=== PATIENT | male | born 1960 | race Caucasian/White ===

== ENCOUNTER 2018-02-04 16:20 | Emergency (ER) | payer BC ==
--- NOTE | 2018-02-04 17:12 | EDM.PDOC ---
ED HPI GENERAL MEDICAL PROBLEM - General Chief Complaint: Chest Pain Stated Complaint: CHEST PAIN Time Seen by Provider: 02/04/18 16:27 Source of Information: Reports: Patient History Limitations: Reports: No Limitations - History of Present Illness INITIAL COMMENTS - FREE TEXT/NARRATIVE: 57 y/o M previously healthy with L sided CP x 2 weeks. No provoking factor. Doesn't recall details of onset. Pain is located in left front chest area. It is a dull tightness and heaviness. Constant. When distracted he doesn't notice it. Rates it as mild. No clear provoking or relieving factors. Not related to eating or movement. Tried antacid medications but no relief. No lower extremity pain or swelling. No cough or recent illness. No fever. No vomiting or abdominal pain. Denies history of similar symptoms previously. No recent travel or immobilization. No personal or family hx of DVT/PE. Brother has coronary stents, diagnosed with CAD in his mid 60's. Left Chest Pain Score (Numeric/FACES): 3 - Related Data Allergies Allergy/AdvReac Type Severity Reaction Status Date / Time No Known Allergies Allergy Verified 02/04/18 16:33 Home Meds: Home Meds Aspirin [Vladimir Chewable Aspirin] 162 mg PO DAILY 02/04/18 [History] Past Medical History HEENT History: Reports: Impaired Vision Social & Family History - Tobacco Use Smoking Status *Q: Never Smoker - Caffeine Use Caffeine Use: Reports: None - Recreational Drug Use Recreational Drug Use: No ED ROS GENERAL - Review of Systems Review Of Systems: See Below Constitutional: Denies: Fever HEENT: Reports: No Symptoms Respiratory: Denies: Shortness of Breath Cardiovascular: Reports: Chest Pain Endocrine: Reports: No Symptoms GI/Abdominal: Denies: Abdominal Pain, Nausea Musculoskeletal: Reports: No Symptoms Skin: Reports: No Symptoms Neurological: Reports: No Symptoms Psychiatric: Reports: No Symptoms ED EXAM, GENERAL - Physical Exam Exam: See Below Exam Limited By: No Limitations General Appearance: Alert, WD/WN, No Apparent Distress Eye Exam: Bilateral Eye: Normal Inspection Ears: Normal External Exam Nose: Normal Inspection Throat/Mouth: Normal Inspection, Normal Oropharynx, Normal Voice Head: Atraumatic, Normocephalic Neck: Normal Inspection, Supple, Non-Tender, Full Range of Motion Respiratory/Chest: No Respiratory Distress, Lungs Clear, Normal Breath Sounds, No Accessory Muscle Use, Chest Non-Tender Cardiovascular: Normal Peripheral Pulses, Regular Rate, Rhythm, No Edema, No Gallop, No Murmur, No Rub Peripheral Pulses: 2+: Radial (R) GI/Abdominal: Soft, Non-Tender, No Distention. No: Rebound Back Exam: Normal Inspection Extremities: Normal Inspection, No Pedal Edema Neurological: Alert, Oriented, Normal Cognition, No Motor/Sensory Deficits Psychiatric: Normal Affect, Normal Mood Skin Exam: Warm, Dry, Intact, Normal Color, No Rash Course - Vital Signs Last Recorded V/S: Last Vital Signs Temp 36.2 C 02/04/18 16:25 Pulse 103 H 02/04/18 16:25 Resp 16 02/04/18 16:25 BP 167/99 H 02/04/18 16:25 Pulse Ox 96 02/04/18 16:25 - Orders/Labs/Meds Orders: Active Orders 24 hr Category Date Time Status EKG Documentation Completion [RC] ASDIRECTED Care 02/04/18 16:33 Active Chest 1V Frontal [CR] Stat Exams 02/04/18 16:40 Taken EKG 12 Lead [EK] Stat Ther 02/04/18 16:33 Ordered Labs: Laboratory Tests 02/04/18 02/04/18 02/04/18 Range/Units 16:35 16:35 16:35 WBC 7.13 (4.23-9.07) K/mm3 RBC 5.45 (4.63-6.08) M/mm3 Hgb 16.1 (13.7-17.5) gm/L Hct 46.8 (40.1-51.0) % MCV 85.9 (79.0-92.2) fl MCH 29.5 (25.7-32.2) pg MCHC 34.4 (32.2-35.5) g/dl RDW Std Deviation 40.9 (35.1-43.9) fL Plt Count 288 (163-337) K/mm3 MPV 9.2 L (9.4-12.3) fl Neut % (Auto) 50.8 (34.0-67.9) % Lymph % (Auto) 37.0 (21.8-53.1) % [place] % (Auto) 9.4 (5.3-12.2) % Eos % (Auto) 2.4 (0.8-7.0) Baso % (Auto) 0.3 (0.1-1.2) % Neut # (Auto) 3.62 (1.78-5.38) K/mm3 Lymph # (Auto) 2.64 (1.32-3.57) K/mm3 [place] # (Auto) 0.67 (0.30-0.82) K/mm3 Eos # (Auto) 0.17 (0.04-0.54) K/mm3 Baso # (Auto) 0.02 (0.01-0.08) K/mm3 D-Dimer, Quantitative 0.26 (0.19-0.59) mg/L Sodium 140 (136-145) mEq/L Potassium 3.8 (3.5-5.1) mEq/L Chloride 102 (98-107) mEq/L Carbon Dioxide 28 (21-32) mEq/L Anion Gap 13.8 (5-15) BUN 22 H (7-18) mg/dL Creatinine 1.3 (0.7-1.3) mg/dL Est Cr Clr Drug Dosing 61.18 mL/min Estimated GFR (MDRD) 57 (>60) mL/min BUN/Creatinine Ratio 16.9 (14-18) Glucose 129 H (74-106) mg/dL Calcium 9.0 (8.5-10.1) mg/dL Total Bilirubin 1.3 H (0.2-1.0) mg/dL AST TNP ALT 100 H (16-63) U/L Alkaline Phosphatase 69 (46-116) U/L Troponin I < 0.017 (0.00-0.056) ng/mL Total Protein 7.3 (6.4-8.2) g/dl Albumin 3.8 (3.4-5.0) g/dl Globulin 3.5 gm/dL Albumin/Globulin Ratio 1.1 (1-2) - Re-Assessments/Exams Free Text/Narrative Re-Assessment/Exam: 02/04/18 18:41 EKG shows NSR, no evidence of acute ischemia or arrhythmia. CXR shows normal cardiac silhouette, no ptx, normal study. Labs including troponin and d-dimer neg. Will not repeat as he's had constant subacute symptoms x 2 weeks. No definite explanation for pain but given well appearing, normal vitals, normal EKG and labs, and only risk factor is family history, will discharge with plan for him to f/u with PCP art to discuss possible further testing. Discussed return precautions. Departure - Departure Time of Disposition: 17:42 Disposition: Home, Self-Care 01 Clinical Impression: Chest pain at rest Instructions: Nonspecific Chest Pain, [id number] Referrals: Dani Torres MD [Primary Care Provider] - Forms: ED Department Discharge Additional Instructions: 1. OK to take acetaminophen (tylenol) and/or ibuprofen as needed for pain 2. Follow up with your primary care provider this week to discuss further testing 3. Return to the ED if you have worsening chest pain, shortness of breath, or any other concerning symptoms - My Orders Last 24 Hours: My Active Orders 02/04/18 16:33 EKG Documentation Completion [RC] ASDIRECTED EKG 12 Lead [EK] Stat 02/04/18 16:40 Chest 1V Frontal [CR] Stat - Assessment/Plan Last 24 Hours: My Active Orders 02/04/18 16:33 EKG Documentation Completion [RC] ASDIRECTED EKG 12 Lead [EK] Stat 02/04/18 16:40 Chest 1V Frontal [CR] Stat
--- NOTE | 2018-02-05 09:12 | CR ---
Chest: Portable view of the chest was obtained. Comparison: No prior chest x-ray. Heart size and mediastinum are normal. Nodule identified within the upper right lung. Lungs otherwise are clear. Bony structures are grossly intact. Impression: 1. Nodule within the right upper lung. Uncertain if this represents a very prominent bony exostosis off the costochondral junction or represents actual pulmonary nodule. Noncontrast chest CT recommended to further evaluate. 2. Nothing acute is otherwise seen on portable chest x-ray. Diagnostic code #9
== END 2018-02-04 17:53 | disposition home or self-care (01) ==
LOC: JD.ED 16:20
DX: R07.89 Other chest pain (principal); Z79.82 Long term (current) use of aspirin
CPT/HCPCS: 36415; 71045; 71045-26; 80053; 84484; 85025; 85379; 93005; 93010; 99284-25; 99285-25

== ENCOUNTER 2019-03-18 06:38 | Emergency (ER) | payer BC ==
[2019-03-18] MEDS ORDERED: Sodium Chloride 0.9% 10 ML Syringe FLUSH PRN (07:14)
--- NOTE | 2019-03-18 07:20 | EDM.PDOC ---
ED HPI GENERAL MEDICAL PROBLEM - General Chief Complaint: Chest Pain Stated Complaint: CHEST PAIN Time Seen by Provider: 03/18/19 07:04 Source of Information: Reports: Patient, Family History Limitations: Reports: No Limitations - History of Present Illness INITIAL COMMENTS - FREE TEXT/NARRATIVE: The patient presents with chest heaviness. He said he woke up this morning with a mild upset stomach. He went to cardiac rehab. He goes there because 1 year ago he had CABG. He said after exercising for awhile he developed heaviness in the left side of his chest. It is gone now. He has no shortness of breath. He has no fever, chills, cough, abdominal pain, nausea or vomiting. He took some jacob seltzer this morning and that made his stomach feel better. He does not smoke and he has no hypertension. He has a family history of heart disease and hypercholesterolemia. Onset: Gradual Duration: Hour(s): Location: Reports: Chest Quality: Reports: Other (Heaviness) Severity: Mild Improves with: Reports: Immobilization Worsens with: Reports: Movement Context: Reports: Exercise Associated Symptoms: Reports: Chest Pain. Denies: Cough, Fever/Chills, Headaches, Nausea/Vomiting, Shortness of Breath Mid-Sternal Chest Pain Score (Numeric/FACES): 2 - Related Data Allergies Allergy/AdvReac Type Severity Reaction Status Date / Time No Known Allergies Allergy Verified 03/18/19 06:46 Home Meds: Home Meds Aspirin [Vladimir Chewable Aspirin] 325 mg PO DAILY 02/04/18 [History] Multivitamin [Multi-Vitamin Daily] 1 each PO DAILY 03/13/18 [History] [place]-3 Fatty Acids [Maxepa] 1,000 mg PO DAILY 03/13/18 [History] atorvaSTATin [Lipitor] 40 mg PO DAILY 03/13/18 [History] metFORMIN [Glucophage] 500 mg PO BID 03/13/18 [History] Metoprolol Tartrate 50 mg PO BID 03/23/18 [History] Ubidecarenone [Coq-10] 400 mg PO DAILY 03/18/19 [History] Past Medical History HEENT History: Reports: Impaired Vision Other HEENT History: Wears glasses Cardiovascular History: Reports: Bypass, High Cholesterol, Hypertension Endocrine/Metabolic History: Reports: Diabetes, Type II - Past Surgical History HEENT Surgical History: Reports: Tonsillectomy Social & Family History - Tobacco Use Smoking Status *Q: Never Smoker - Caffeine Use Caffeine Use: Reports: None - Recreational Drug Use Recreational Drug Use: No ED ROS GENERAL - Review of Systems Review Of Systems: See Below Constitutional: Reports: No Symptoms HEENT: Reports: No Symptoms Respiratory: Reports: No Symptoms Cardiovascular: Reports: Chest Pain Endocrine: Reports: No Symptoms GI/Abdominal: Reports: No Symptoms : Reports: No Symptoms Musculoskeletal: Reports: No Symptoms Skin: Reports: No Symptoms ED EXAM, GENERAL - Physical Exam Exam: See Below Exam Limited By: No Limitations General Appearance: Alert, No Apparent Distress Ears: Normal External Exam Nose: Normal Inspection Head: Atraumatic, Normocephalic Neck: Normal Inspection Respiratory/Chest: No Respiratory Distress, Lungs Clear, Normal Breath Sounds Cardiovascular: Regular Rate, Rhythm, No Edema, No Murmur GI/Abdominal: Soft, Non-Tender, No Organomegaly, No Mass Back Exam: Normal Inspection Extremities: Normal Inspection EKG INTERPRETATION EKG Date: 03/18/19 Time: 06:42 Rhythm: NSR Rate (Beats/Min): 62 [place]: Normal P-Wave: Present QRS: Normal ST-T: Normal QT: Normal Course - Vital Signs Last Recorded V/S: Last Vital Signs Temp 96.6 F 03/18/19 06:41 Pulse 58 L 03/18/19 07:46 Resp 11 L 03/18/19 07:46 BP 116/72 03/18/19 07:46 Pulse Ox 96 03/18/19 07:46 - Orders/Labs/Meds Orders: Active Orders 24 hr Category Date Time Status Cardiac Monitoring [RC] . DIRECTED Care 03/18/19 07:14 Active EKG Documentation Completion [RC] STAT Care 03/18/19 07:14 Active Peripheral IV Care [RC] . DIRECTED Care 03/18/19 07:14 Active TROPONIN I [CHEM] Stat Lab 03/18/19 08:58 Ordered Sodium Chloride 0.9% [Saline Flush] Med 03/18/19 07:14 Active 10 ml FLUSH ASDIRECTED PRN Peripheral IV Insertion Adult [OM.PC] Stat Oth 03/18/19 07:14 Ordered Medication Orders Sodium Chloride (Saline Flush) 10 ml FLUSH ASDIRECTED PRN PRN Reason: Keep Vein Open Last Admin: 03/18/19 07:18 Dose: 10 ml Labs: Laboratory Tests 03/18/19 03/18/19 Range/Units 06:53 06:53 WBC 6.44 (4.23-9.07) K/mm3 RBC 5.13 (4.63-6.08) M/mm3 Hgb 14.9 (13.7-17.5) gm/L Hct 45.2 (40.1-51.0) % MCV 88.1 (79.0-92.2) fl MCH 29.0 (25.7-32.2) pg MCHC 33.0 (32.2-35.5) g/dl RDW Std Deviation 43.9 (35.1-43.9) fL Plt Count 253 (163-337) K/mm3 MPV 9.4 (9.4-12.3) fl Neut % (Auto) 64.5 (34.0-67.9) % Lymph % (Auto) 24.4 (21.8-53.1) % [place] % (Auto) 7.8 (5.3-12.2) % Eos % (Auto) 2.6 (0.8-7.0) Baso % (Auto) 0.5 (0.1-1.2) % Neut # (Auto) 4.16 (1.78-5.38) K/mm3 Lymph # (Auto) 1.57 (1.32-3.57) K/mm3 [place] # (Auto) 0.50 (0.30-0.82) K/mm3 Eos # (Auto) 0.17 (0.04-0.54) K/mm3 Baso # (Auto) 0.03 (0.01-0.08) K/mm3 Sodium 141 (136-145) mEq/L Potassium 3.9 (3.5-5.1) mEq/L Chloride 103 (98-107) mEq/L Carbon Dioxide 31 (21-32) mEq/L Anion Gap 10.9 (5-15) BUN 22 H (7-18) mg/dL Creatinine 1.1 (0.7-1.3) mg/dL Est Cr Clr Drug Dosing 71.41 mL/min Estimated GFR (MDRD) > 60 (>60) mL/min BUN/Creatinine Ratio 20.0 H (14-18) Glucose 109 H (74-106) mg/dL Calcium 9.4 (8.5-10.1) mg/dL Total Bilirubin 1.1 H (0.2-1.0) mg/dL AST 23 (15-37) U/L ALT 35 (16-63) U/L Alkaline Phosphatase 74 (46-116) U/L Troponin I < 0.017 (0.00-0.056) ng/mL Total Protein 7.3 (6.4-8.2) g/dl Albumin 3.9 (3.4-5.0) g/dl Globulin 3.4 gm/dL Albumin/Globulin Ratio 1.2 (1-2) Meds: Medications Generic Name Dose Route Start Last Admin Trade Name Freq PRN Reason Stop Dose Admin Sodium Chloride 10 ml 03/18/19 07:14 03/18/19 07:18 Saline Flush FLUSH 10 ml ASDIRECTED PRN Administration Keep Vein Open - Re-Assessments/Exams Free Text/Narrative Re-Assessment/Exam: 03/18/19 07:20 I ordered an IV saline lock, EKG, CXR and labs. The patient did take aspirin this morning. His EKG shows a NSR with no acute changes. 03/18/19 08:59 His CXR looks good. His CBC and CMP look good. His troponin is negative. I will do a repeat troponin. Departure - Departure Time of Disposition: 09:00 Disposition: Home, Self-Care 01 Condition: Good Clinical Impression: Atypical chest pain Referrals: Sherlyn Garcia, C[employer] SEPARATOR E[facility]ING [Primary Care Provider] - 1 Week Forms: ED Department Discharge Additional Instructions: Take the jacob seltzer or pepcid daily for about 5 days. Please return if you are worse. - My Orders Last 24 Hours: My Active Orders 03/18/19 07:14 Cardiac Monitoring [RC] . DIRECTED EKG Documentation Completion [RC] STAT Peripheral IV Care [RC] . DIRECTED Sodium Chloride 0.9% [Saline Flush] 10 ml FLUSH ASDIRECTED PRN Peripheral IV Insertion Adult [OM.PC] Stat 03/18/19 08:58 TROPONIN I [CHEM] Stat - Assessment/Plan Last 24 Hours: My Active Orders 03/18/19 07:14 Cardiac Monitoring [RC] . DIRECTED EKG Documentation Completion [RC] STAT Peripheral IV Care [RC] . DIRECTED Sodium Chloride 0.9% [Saline Flush] 10 ml FLUSH ASDIRECTED PRN Peripheral IV Insertion Adult [OM.PC] Stat 03/18/19 08:58 TROPONIN I [CHEM] Stat
--- NOTE | 2019-03-18 08:51 | CR ---
Chest: Portable view of the chest was obtained. Comparison: Prior chest x-ray of 02/04/18. Heart size and mediastinum are normal. Previous sternotomy is seen. Lungs are clear with no acute parenchymal change. Nodular density is noted within the right upper chest believed to represent inferior projection of costochondral calcification. Impression: 1. Nothing acute is seen. Diagnostic code #2
== END 2019-03-18 09:13 | disposition home or self-care (01) ==
LOC: JD.ED 06:38
DX: R07.89 Other chest pain (principal); E11.9 Type 2 diabetes mellitus without complications; I10 Essential (primary) hypertension; Z79.899 Other long term (current) drug therapy
CPT/HCPCS: 36415; 71045; 71045-26; 80053; 84484; 85025; 93005; 93010; 99284; 99285-25

== ENCOUNTER 2019-08-29 13:14 | Emergency (ER) | payer BC ==
[2019-08-29] MEDS ORDERED: Sodium Chloride 0.9% 10 ML Syringe FLUSH PRN (13:49)
[2019-08-29] MEDS ORDERED: Ondansetron 4 MG/2 ML SDV IVPUSH ONE (13:50)
[2019-08-29] MEDS ORDERED: Famotidine 20 MG/2 ML SDV IVPUSH ONE (13:50)
--- NOTE | 2019-08-29 14:11 | EDM.PDOC ---
ED HPI GENERAL MEDICAL PROBLEM - General Chief Complaint: Abdominal Pain Stated Complaint: CHEST PAIN Time Seen by Provider: 08/29/19 13:40 Source of Information: Reports: Patient History Limitations: Reports: No Limitations - History of Present Illness INITIAL COMMENTS - FREE TEXT/NARRATIVE: The patient presents with upper abdominal pain. This started just prior to arrival. He just got done eating and he was heading back to work. He felt epigastric pain and then it went to the mid abdomen. He got nauseated but did not vomit. He got diaphoretic. He had no chest pain or shortness of breath. He does have CAD with 4 vessel bypass over a year ago. He has no fever, cough, dysuria or diarrhea. Onset: Sudden Duration: Minutes: Location: Reports: Abdomen Quality: Reports: Sharp Severity: Moderate Improves with: Reports: None Worsens with: Reports: None Associated Symptoms: Reports: Fever/Chills, Nausea/Vomiting. Denies: Chest Pain , Cough, Headaches, Shortness of Breath Treatments CABLE ENGINEER: Reports: Other (see below) Other Treatments CABLE ENGINEER: rolaids Upper Abdomen Pain Score (Numeric/FACES): 6 - Related Data Allergies Allergy/AdvReac Type Severity Reaction Status Date / Time No Known Allergies Allergy Verified 03/18/19 06:46 Home Meds: Home Meds Aspirin [Vladimir Chewable Aspirin] 325 mg PO DAILY 02/04/18 [History] Multivitamin [Multi-Vitamin Daily] 1 each PO DAILY 03/13/18 [History] [place]-3 Fatty Acids [Maxepa] 1,000 mg PO DAILY 03/13/18 [History] atorvaSTATin [Lipitor] 40 mg PO DAILY 03/13/18 [History] metFORMIN [Glucophage] 500 mg PO BID 03/13/18 [History] Metoprolol Tartrate 25 mg PO BID 03/23/18 [History] Ubidecarenone [Coq-10] 400 mg PO DAILY 03/18/19 [History] Past Medical History HEENT History: Reports: Impaired Vision Other HEENT History: Wears glasses Cardiovascular History: Reports: Bypass, High Cholesterol, Hypertension Endocrine/Metabolic History: Reports: Diabetes, Type II - Past Surgical History HEENT Surgical History: Reports: Tonsillectomy Social & Family History - Tobacco Use Smoking Status *Q: Never Smoker - Caffeine Use Caffeine Use: Reports: None - Recreational Drug Use Recreational Drug Use: No ED ROS GENERAL - Review of Systems Review Of Systems: See Below Constitutional: Reports: Chills. Denies: Fever HEENT: Reports: No Symptoms Respiratory: Reports: No Symptoms Cardiovascular: Reports: Chest Pain Endocrine: Reports: No Symptoms GI/Abdominal: Reports: Abdominal Pain, Nausea. Denies: Diarrhea, Vomiting : Reports: No Symptoms Musculoskeletal: Reports: No Symptoms ED EXAM, GI/ABD - Physical Exam Exam: See Below Exam Limited By: No Limitations General Appearance: Alert, No Apparent Distress Ears: Normal External Exam Nose: Normal Inspection Head: Atraumatic, Normocephalic Neck: Normal Inspection Respiratory/Chest: No Respiratory Distress, Lungs Clear, Normal Breath Sounds Cardiovascular: Regular Rate, Rhythm, No Edema, No Murmur GI/Abdominal Exam: Soft, Non-Tender, No Organomegaly, No Mass Back Exam: Normal Inspection Extremities: Normal Inspection Neurological: Alert, Oriented, No Motor/Sensory Deficits EKG INTERPRETATION EKG Date: 08/29/19 Time: 13:29 Rhythm: Other (sinus bradycardia) Rate (Beats/Min): 52 [place]: Normal P-Wave: Present QRS: Normal ST-T: Normal QT: Normal GA/PQ Interval: 1st degree HB Course - Vital Signs Last Recorded V/S: Last Vital Signs Temp 96.4 F 08/29/19 13:23 Pulse 54 L 08/29/19 13:23 Resp 9 L 08/29/19 13:23 BP 134/79 08/29/19 13:23 Pulse Ox 100 08/29/19 13:23 - Orders/Labs/Meds Orders: Active Orders 24 hr Category Date Time Status Cardiac Monitoring [RC] . DIRECTED Care 08/29/19 13:49 Active EKG Documentation Completion [RC] ASDIRECTED Care 08/29/19 13:30 Active Peripheral IV Care [RC] . DIRECTED Care 08/29/19 13:49 Active TROPONIN I [CHEM] Stat Lab 08/29/19 15:26 Ordered UA W/MICROSCOPIC [URIN] Stat Lab 08/29/19 15:20 Received Sodium Chloride 0.9% [Saline Flush] Med 08/29/19 13:49 Active 10 ml FLUSH ASDIRECTED PRN Peripheral IV Insertion Adult [OM.PC] Stat Oth 08/29/19 13:49 Ordered EKG 12 Lead [EK] Stat Ther 08/29/19 13:30 Ordered Medication Orders Sodium Chloride (Saline Flush) 10 ml FLUSH ASDIRECTED PRN PRN Reason: Keep Vein Open Last Admin: 08/29/19 13:57 Dose: 10 ml Labs: Laboratory Tests 08/29/19 08/29/19 Range/Units 13:28 13:28 WBC 7.66 (4.23-9.07) K/mm3 RBC 4.87 (4.63-6.08) M/mm3 Hgb 14.3 (13.7-17.5) gm/dl Hct 43.1 (40.1-51.0) % MCV 88.5 (79.0-92.2) fl MCH 29.4 (25.7-32.2) pg MCHC 33.2 (32.2-35.5) g/dl RDW Std Deviation 43.7 (35.1-43.9) fL Plt Count 248 (163-337) K/mm3 MPV 9.1 L (9.4-12.3) fl Neut % (Auto) 41.3 (34.0-67.9) % Lymph % (Auto) 45.3 (21.8-53.1) % [place] % (Auto) 10.3 (5.3-12.2) % Eos % (Auto) 2.5 (0.8-7.0) Baso % (Auto) 0.3 (0.1-1.2) % Neut # (Auto) 3.17 (1.78-5.38) K/mm3 Lymph # (Auto) 3.47 (1.32-3.57) K/mm3 [place] # (Auto) 0.79 (0.30-0.82) K/mm3 Eos # (Auto) 0.19 (0.04-0.54) K/mm3 Baso # (Auto) 0.02 (0.01-0.08) K/mm3 Sodium 142 (136-145) mEq/L Potassium 3.0 L (3.5-5.1) mEq/L Chloride 103 (98-107) mEq/L Carbon Dioxide 32 (21-32) mEq/L Anion Gap 10.0 (5-15) BUN 19 H (7-18) mg/dL Creatinine 1.0 (0.7-1.3) mg/dL Est Cr Clr Drug Dosing 77.57 mL/min Estimated GFR (MDRD) > 60 (>60) mL/min BUN/Creatinine Ratio 19.0 H (14-18) Glucose 101 (80-115) mg/dL Calcium 8.6 (8.5-10.1) mg/dL Total Bilirubin 1.3 H (0.2-1.0) mg/dL AST 33 (15-37) U/L ALT 48 (16-63) U/L Alkaline Phosphatase 68 (46-116) U/L Troponin I < 0.017 (0.00-0.056) ng/mL Total Protein 6.9 (6.4-8.2) g/dl Albumin 3.7 (3.4-5.0) g/dl Globulin 3.2 gm/dL Albumin/Globulin Ratio 1.2 (1-2) Lipase 162 (73-393) U/L Meds: Medications Generic Name Dose Route Start Last Admin Trade Name Freq PRN Reason Stop Dose Admin Sodium Chloride 10 ml 08/29/19 13:49 08/29/19 13:57 Saline Flush FLUSH 10 ml ASDIRECTED PRN Administration Keep Vein Open Discontinued Medications Generic Name Dose Route Start Last Admin Trade Name Freq PRN Reason Stop Dose Admin Famotidine 20 mg 08/29/19 13:50 08/29/19 13:56 Pepcid IVPUSH 08/29/19 13:51 20 mg ONETIME ONE Administration Ondansetron HCl 4 mg 08/29/19 13:50 08/29/19 13:58 Zofran IVPUSH 08/29/19 13:51 4 mg ONETIME ONE Administration - Re-Assessments/Exams Free Text/Narrative Re-Assessment/Exam: 08/29/19 15:32 I ordered an IV saline lock, pepcid 20mg IV, zofran 4mg IV, labs, EKG and CXR. His CBC and CMP look good. His troponin is negative. His UA shows no UTI. His EKG shows a sinus bradycardia with no acute changes. I will have him take pepcid and I have ordered a repeat troponin. Departure - Departure Time of Disposition: 15:40 Disposition: Home, Self-Care 01 Condition: Good Clinical Impression: Abdominal pain Qualifiers: Abdominal location: upper abdomen, unspecified Qualified Code(s): R10.10 - Upper abdominal pain, unspecified - Discharge Information *PRESCRIPTION DRUG MONITORING PROGRAM REVIEWED*: No *COPY OF PRESCRIPTION DRUG MONITORING REPORT IN PATIENT SHUN: No Referrals: Sherlyn Garcia NP [Primary Care Provider] - 1 Week Forms: ED Department Discharge Additional Instructions: Take pepcid daily for 1 week. Try to eat bland food over the next couple of days. Please return if you are worse. - My Orders Last 24 Hours: My Active Orders 08/29/19 13:30 EKG Documentation Completion [RC] ASDIRECTED EKG 12 Lead [EK] Stat 08/29/19 13:49 Cardiac Monitoring [RC] . DIRECTED Peripheral IV Care [RC] . DIRECTED Sodium Chloride 0.9% [Saline Flush] 10 ml FLUSH ASDIRECTED PRN Peripheral IV Insertion Adult [OM.PC] Stat 08/29/19 15:20 UA W/MICROSCOPIC [URIN] Stat 08/29/19 15:26 TROPONIN I [CHEM] Stat - Assessment/Plan Last 24 Hours: My Active Orders 08/29/19 13:30 EKG Documentation Completion [RC] ASDIRECTED EKG 12 Lead [EK] Stat 08/29/19 13:49 Cardiac Monitoring [RC] . DIRECTED Peripheral IV Care [RC] . DIRECTED Sodium Chloride 0.9% [Saline Flush] 10 ml FLUSH ASDIRECTED PRN Peripheral IV Insertion Adult [OM.PC] Stat 08/29/19 15:20 UA W/MICROSCOPIC [URIN] Stat 08/29/19 15:26 TROPONIN I [CHEM] Stat
--- NOTE | 2019-08-29 15:12 | CR ---
Chest: Two views of the chest were obtained. Comparison: Prior chest x-ray of 03/18/19. Heart size and mediastinum are normal. Sternotomy wires are seen. Diaphragms are slightly flattened on the lateral view suggesting emphysematous change. Minimal degenerative change is noted within the spine. Previous CABG is noted. Impression: 1. Slight emphysematous change. Other findings as noted above which are stable. 2. Nothing acute is appreciated. Diagnostic code #2
== END 2019-08-29 16:20 | disposition home or self-care (01) ==
LOC: JD.ED 13:14
DX: R10.13 Epigastric pain (principal); I10 Essential (primary) hypertension; E11.9 Type 2 diabetes mellitus without complications; E78.00 Pure hypercholesterolemia, unspecified; Z79.82 Long term (current) use of aspirin; Z79.899 Other long term (current) drug therapy
CPT/HCPCS: 36415; 71046; 80053; 81001; 83690; 84484; 85025; 93005; 96374; 96375; 99285; J2405; J3490; 93010; 99284

== ENCOUNTER 2025-01-19 18:25 | Emergency (ER) | payer BC ==
[2025-01-19] MEDS ORDERED: Sodium Chloride 0.9% 10 ML Syringe FLUSH PRN (19:08)
[2025-01-19 19:36] LABS: BASOPHILS PERCENT AUTO 0.6 % (0.0-1.0); EOSINOPHILS ABSOLUTE AUTO 0.2 K/mm3 (0.0-0.4); EOSINOPHILS PERCENT AUTO 2.3 % (0.0-6.0); HEMATOCRIT 43.7 % (42.0-52.0); HEMOGLOBIN 14.6 gm/dl (14.0-18.0); IMMATURE GRAN ABSOLUTE AUTO 0.01 K/mm3 (0.00-0.05); IMMATURE GRAN PERCENT AUTO 0.1 % (0.0-0.4); LYMPHOCYTES ABSOLUTE AUTO 1.8 K/mm3 (1.0-4.8); LYMPHOCYTES PERCENT AUTO 25.2 % (24.0-44.0); MEAN CORPUSCULAR HEMOGLOBIN 29.6 pg (28.0-32.0); MEAN CORPUSCULAR HGB CONC 33.4 g/dl (32.0-36.0); MEAN CORPUSCULAR VOLUME 88.5 fl (83.0-99.0); MEAN PLATELET VOLUME 8.9 fl (9.4-12.4); MONOCYTES ABSOLUTE AUTO 0.7 K/mm3 (0.0-0.8); MONOCYTES PERCENT AUTO 9.8 % (0.0-8.0); NEUTROPHILS ABSOLUTE AUTO 4.3 K/mm3 (1.8-7.7); PLATELET COUNT,PLT 237 K/mm3 (150-400); RED BLOOD CELL COUNT 4.94 M/mm3 (4.52-5.90); WHITE BLOOD CELL COUNT,WBC 6.94 K/mm3 (3.9-11.3)
[2025-01-19 20:02] LABS: A/G RATIO 1.2 (1-2); ALANINE AMINOTRANSFERASE,ALT 41 U/L (16-63); ALBUMIN 3.7 g/dl (3.4-5.0); ALKALINE PHOSPHATASE 62 U/L (46-116); ANION GAP 10.7 (5-15); ASPARTATE AMNIOTRANSFERASE,AST 25 U/L (15-37); BILIRUBIN TOTAL 1.7 mg/dL (0.2-1.0); BLOOD UREA NITROGEN,BUN 24 mg/dL (7-18); BUN/CREATININE RATIO 18.5 (14-18); CARBON DIOXIDE,CO2 30 mEq/L (21-32); CHLORIDE,CL 105 mEq/L (98-107); CREATININE 1.3 mg/dL (0.7-1.3); ESTIMATED GFR 61 mL/min (>60); GLUCOSE RANDOM 82 mg/dL (70-99); POTASSIUM,K 3.7 mEq/L (3.5-5.1); PROTEIN TOTAL,TP 6.9 g/dl (6.4-8.2); SODIUM,NA 142 mEq/L (136-145)
[2025-01-19 20:03] LABS: TROPONIN I HIGH SENSITIVITY < 4 pg/mL (<=76)
== END 2025-01-19 20:50 | disposition home or self-care (01) ==
LOC: JD.ED 18:25
DX: R07.89 Other chest pain (principal); I10 Essential (primary) hypertension; E78.00 Pure hypercholesterolemia, unspecified; E11.9 Type 2 diabetes mellitus without complications; Z79.82 Long term (current) use of aspirin; Z79.84 Long term (current) use of oral hypoglycemic drugs; Z79.899 Other long term (current) drug therapy
CPT/HCPCS: 36415; 71046; 71046-26; 80053; 84484; 85025; 85379; 93005; 99285

== ENCOUNTER 2025-10-26 16:54 | Emergency (ER) | payer BC ==
[2025-10-26 17:40] LABS: BASOPHILS ABSOLUTE AUTO 0.0 K/mm3 (0.0-0.2); BASOPHILS PERCENT AUTO 0.5 % (0.0-1.0); EOSINOPHILS ABSOLUTE AUTO 0.2 K/mm3 (0.0-0.4); EOSINOPHILS PERCENT AUTO 3.0 % (0.0-6.0); IMMATURE GRAN ABSOLUTE AUTO 0.01 K/mm3 (0.00-0.05); IMMATURE GRAN PERCENT AUTO 0.2 % (0.0-0.4); LYMPHOCYTES ABSOLUTE AUTO 1.6 K/mm3 (1.0-4.8); LYMPHOCYTES PERCENT AUTO 25.7 % (24.0-44.0); MEAN PLATELET VOLUME 9.2 fl (9.4-12.4); MONOCYTES ABSOLUTE AUTO 0.6 K/mm3 (0.0-0.8); MONOCYTES PERCENT AUTO 9.3 % (0.0-8.0); NEUTROPHILS ABSOLUTE AUTO 3.8 K/mm3 (1.8-7.7); NEUTROPHILS PERCENT AUTO 61.3 % (41.0-71.0); NRBC ABSOLUTE 0.00 (0.00-0.02); NRBC PERCENT 0.0 % (0.0-0.2); PLATELET COUNT,PLT 286 K/mm3 (150-400); RED BLOOD CELL COUNT 5.16 M/mm3 (4.52-5.90); WHITE BLOOD CELL COUNT,WBC 6.23 K/mm3 (3.9-11.3)
[2025-10-26 17:59] LABS: A/G RATIO 1.1 (1-2); ALANINE AMINOTRANSFERASE,ALT 34.0 U/L (16-63); ASPARTATE AMNIOTRANSFERASE,AST 18.0 U/L (15-37); BILIRUBIN TOTAL 1.4 mg/dL (0.2-1.0); BLOOD UREA NITROGEN,BUN 35.0 mg/dL (7-18); CARBON DIOXIDE,CO2 29.0 mEq/L (21-32); CHLORIDE,CL 106.0 mEq/L (98-107); CREATININE 1.4 mg/dL (0.7-1.3); EST CRCL DRUG DOSING (CG) 51.2 mL/min; ESTIMATED GFR 55.0 mL/min (>60); GLUCOSE RANDOM 101.0 mg/dL (70-99); POTASSIUM,K 3.8 mEq/L (3.5-5.1); PROTEIN TOTAL,TP 7.2 g/dl (6.4-8.2); SODIUM,NA 144.0 mEq/L (136-145); TROPONIN I HIGH SENSITIVITY 8.0 pg/mL (<=76)
== END 2025-10-26 20:30 | disposition home or self-care (01) ==
LOC: JD.ED 16:54
DX: R07.89 Other chest pain (principal); I10 Essential (primary) hypertension; E78.00 Pure hypercholesterolemia, unspecified; E11.9 Type 2 diabetes mellitus without complications; Z95.5 Presence of coronary angioplasty implant and graft; Z79.82 Long term (current) use of aspirin; Z79.84 Long term (current) use of oral hypoglycemic drugs; Z79.899 Other long term (current) drug therapy
CPT/HCPCS: 36415; 71045; 71045-26; 80053; 83880; 84484; 85025; 93005; 93010; 99284; 99285